=== PATIENT | male | born 1965 | race Caucasian/White ===

== ENCOUNTER 2019-04-11 18:29 | Outpatient (REF) | payer MEDICAID, SELFPAY ==
[2019-04-11 21:38] LABS: Calculated LDL 128 mg/dL; Cholesterol 198 mg/dL (50-200); HDL Cholesterol 31 mg/dL (40-60); Triglyceride 199 mg/dL (30-150)
[2019-04-12 08:13] LABS: ALT 28 U/L (12-78); AST 12 U/L (15-37); Alkaline Phosphatase 110 U/L (46-116); Anion Gap 11.3 mmol/L (3-11); BUN 17 mg/dL (7-18); Bilirubin, Total 0.4 mg/dL (0.2-1.0); CO2 24.7 mmol/L (21.0-32.0); Chloride 104 mmol/L (98-107); Glucose 89 mg/dL (70-100); Potassium 4.4 mmol/L (3.5-5.1); Sodium 140 mmol/L (136-145); Total Protein 7.6 g/dL (6.4-8.2)
== END 2019-04-11 18:49 ==
LOC: NCHCN 18:29
PROVIDERS: PCP Nurse Practitioner Family; Visit Provider Nurse Practitioner Family
DX: F41.8 Other specified anxiety disorders (principal); G43.109 Migraine with aura, not intractable, without status migrainosus; R05 Cough; R06.83 Snoring; R10.32 Left lower quadrant pain; F17.210 Nicotine dependence, cigarettes, uncomplicated; Z13.220 Encounter for screening for lipoid disorders; Z00.00 Encounter for general adult medical examination without abnormal findings; R00.2 Palpitations
CPT/HCPCS: 80053; 80061; 83721

== ENCOUNTER 2019-04-22 02:45 | Outpatient (CLI) | payer MEDICAID, SELFPAY ==
--- NOTE | 2019-04-22 | PFT_ITS ---
PULMONARY FUNCTION TEST REPORT Patient - Sergio Del Rio DATE OF SERVICE April 22, 2019 REQUESTING PROVIDER Aimee Cortes NP INTERPRETATION OF STUDY Spirometry shows no evidence of obstructive airways disease with no significant bronchodilator response. LUNG VOLUMES - Lung volumes show no evidence of restriction. DIFFUSION CAPACITY- Moderately reduced, which is mildly reduced when corrected to alveolar volume. AIRWAY RESISTANCE - Normal. IMPRESSION Mild obstructive airways disease with no significant bronchodilator response. This is associated with moderate diffusion defect. Clinical correlation recommended. Isaura Bee M.D. Leno T- 04/28/2019
[2019-04-22] MEDS: Inhaler, Assist Device 1 EACH MC (14:15)
[2019-04-22] MEDS: Albuterol HFA 18 GM 200 PUFF INH IH (14:16)
== END 2019-04-22 03:05 ==
PROVIDERS: PCP Nurse Practitioner Family; Visit Provider Nurse Practitioner Family
DX: R05 Cough (principal); R06.09 Other forms of dyspnea; F17.200 Nicotine dependence, unspecified, uncomplicated
CPT/HCPCS: 94060; 94150; 94726; 94729

== ENCOUNTER 2019-06-14 16:42 | Outpatient (REF) | payer BC, MEDICAID, SELFPAY ==
[2019-06-14 21:29] LABS: ALT 41 U/L (16-63); AST 16 U/L (15-37); Albumin 4.2 g/dL (3.4-5.0); Alkaline Phosphatase 111 U/L (46-116); Anion Gap 9.8 mmol/L (3-11); BUN 8 mg/dL (7-18); Bilirubin, Total 0.4 mg/dL (0.2-1.0); CO2 28.2 mmol/L (21.0-32.0); CREATININE 1.13 mg/dL (0.70-1.30); Calcium 9.5 mg/dL (8.5-10.1); Calculated LDL 88 mg/dL; Chloride 101 mmol/L (98-107); Cholesterol 159 mg/dL (50-200); Glucose 93 mg/dL (70-100); HDL Cholesterol 35 mg/dL (40-60); Potassium 4.3 mmol/L (3.5-5.1); Sodium 139 mmol/L (136-145); Total Protein 7.7 g/dL (6.4-8.2); Triglyceride 184 mg/dL (30-150)
== END 2019-06-14 17:02 ==
LOC: NCHCN 16:42
PROVIDERS: PCP Nurse Practitioner Family; Visit Provider Nurse Practitioner Family
DX: F41.8 Other specified anxiety disorders (principal); I25.10 Atherosclerotic heart disease of native coronary artery without angina pectoris; R00.2 Palpitations; F17.210 Nicotine dependence, cigarettes, uncomplicated; J44.9 Chronic obstructive pulmonary disease, unspecified; J01.90 Acute sinusitis, unspecified; R06.83 Snoring
CPT/HCPCS: 80053; 80061

== ENCOUNTER 2020-06-04 19:05 | Outpatient (REF) | payer OTHER, SELFPAY ==
[2020-06-07 20:05] LABS: Patient Race White; SARS-CoV-2 RNA Undetected (Undetected); SARS-CoV-2 Specimen Source Nasal
== END 2020-06-04 19:25 ==
LOC: NCHCN 19:05
PROVIDERS: PCP Nurse Practitioner Family; Visit Provider Family Medicine
DX: J02.9 Acute pharyngitis, unspecified (principal); R05 Cough; Z11.59 Encounter for screening for other viral diseases
CPT/HCPCS: U0003

== ENCOUNTER 2020-09-03 18:09 | Outpatient (REF) | payer OTHER, SELFPAY ==
[2020-09-03 20:56] LABS: HCT 45.2 % (40.0-50.0); HGB 15.4 g/dL (13.5-17.5); MCH 31.2 pg (27.0-33.0); MCHC 34.1 % (32.0-36.0); MCV 91.7 fL (80-95); MPV 9.6 fL (8.0-11.0); Platelet Count 310 10^3/uL (130-400); RBC 4.93 10^6/uL (4.36-5.78); RDW 13.1 % (11.8-14.1); WBC 10.94 10^3/uL (4.4-10.8)
[2020-09-03 21:05] LABS: ALT 43 U/L (16-63); AST 18 U/L (15-37); Albumin 4.3 g/dL (3.4-5.0); Alkaline Phosphatase 97 U/L (46-116); Anion Gap 7.4 mmol/L (3-11); BUN 11 mg/dL (7-18); Bilirubin, Total 0.4 mg/dL (0.2-1.0); CO2 26.6 mmol/L (21.0-32.0); CREATININE 1.09 mg/dL (0.70-1.30); Calculated LDL 147 mg/dL (<100); Chloride 102 mmol/L (98-107); Cholesterol 218 mg/dL (<200); Glucose 87 mg/dL (74-106); HDL Cholesterol 36 mg/dL (40-60); Potassium 4.2 mmol/L (3.5-5.1); Sodium 136 mmol/L (136-145); Total Protein 7.6 g/dL (6.4-8.2); Triglyceride 177 mg/dL (<150)
[2020-09-03 21:40] LABS: Vitamin D 25 Total 39.6 ng/ml (30-100)
== END 2020-09-03 18:29 ==
LOC: NCHCN 18:09
PROVIDERS: PCP Nurse Practitioner Family; Visit Provider Family Medicine
DX: I25.10 Atherosclerotic heart disease of native coronary artery without angina pectoris (principal)
CPT/HCPCS: 80053; 80061; 82306; 85027

== ENCOUNTER 2020-10-17 09:57 | Emergency (ER) | payer OTHER, SELFPAY ==
[2020-10-17] VITALS (40 sets, daily range): BP systolic 115–140; BP diastolic 72–97; PULSE 52–75; RESP 12–25; TEMP 37.1; O2SAT 94–100
--- NOTE | 2020-10-17 10:00 | RT.EKG_ITS ---
APPROVED REPORT Exam: Resting ECG Patient Location: E HR:67 bpm ECG Measurements Heart Rate 67 AXIS DE 184 P 80 QRSd 135 QRS -13 QT 437 T 52 QTc 461 Conclusion Sinus rhythm...normal P axis, V-rate 60- 99 Right bundle branch block...QRSd>120, terminal axis(90,270) ST elevation, consider inferior injury...ST >0.08mV, II III aVF. No STEMI. RBBB. No old EKG to compare. I have reviewed and interpreted ECG and agree with software generated interpretation.
--- NOTE | 2020-10-17 10:30 | DI.RAD_ITS ---
EXAM: XR PORTABLE CHEST AP CLINICAL HISTORY: chest pain. TECHNIQUE: 2D digital imaging was performed. COMPARISON: No exams were available for comparison FINDINGS: Heart size is normal. The mediastinum is not widened. There is platelike atelectasis in both lung bases. No pleural effusions. No pulmonary edema. No pn eumothorax. Chest leads in place IMPRESSION: There is subsegmental platelike atelectasis in both lung bases. No pleural effusions. DATA REPOSITORY: RADIATION DOSE DELIVERED:
[2020-10-17 10:31] LABS: Abs Immature Grans 0.03 10^3/uL (0.0-0.06); Absolute Basophil Count 0.09 10^3/uL (0.0-0.2); Absolute Eosinophil Count 0.18 10^3/uL (0.0-0.7); Absolute Lymphocyte Count 3.13 10^3/uL (1.2-3.4); Absolute Monocyte Count 0.78 10^3/uL (0.1-0.8); Absolute Neutrophil Count 4.76 10^3/uL (1.2-6.7); HCT 45.2 % (40.0-50.0); HGB 15.3 g/dL (13.5-17.5); Immature Grans % 0.3; Lymphocytes % 34.9; MCH 31.2 pg (27.0-33.0); MCHC 33.8 % (32.0-36.0); MCV 92.1 fL (80-95); MPV 9.4 fL (8.0-11.0); Monocytes % 8.7; Neutrophils % 53.1; Nucleated RBC 0 %; Platelet Count 292 10^3/uL (130-400); RBC 4.91 10^6/uL (4.36-5.78); RDW 13.2 % (11.8-14.1); RDW-SD 44.8 fL; WBC 8.97 10^3/uL (4.4-10.8)
[2020-10-17 10:41] LABS: ALT 34 U/L (16-63); AST 16 U/L (15-37); Albumin 3.8 g/dL (3.4-5.0); Alkaline Phosphatase 94 U/L (46-116); Anion Gap 10.2 mmol/L (3-11); BUN 18 mg/dL (7-18); Bilirubin, Total 0.5 mg/dL (0.2-1.0); CO2 23.8 mmol/L (21.0-32.0); CREATININE 1.2 mg/dL (0.70-1.30); Calcium 8.7 mg/dL (8.5-10.1); Chloride 102 mmol/L (98-107); Glucose 156 mg/dL (74-106); Magnesium 1.7 mg/dL (1.8-2.4); Potassium 3.9 mmol/L (3.5-5.1); Sodium 136 mmol/L (136-145); Total Protein 7.7 g/dL (6.4-8.2); Troponin I < 0.05 ng/mL (<0.06)
--- NOTE | 2020-10-17 10:42 | W.ED.GENAD ---
Discharge Plan Disposition Patient Disposition: HOME Condition: Stable Discharge Details Clinical Impression: Chest pain, Lung nodule Primary Care Provider: Aimee Cortes ED Provider: Laury Adhikari Home Meds and New Rx's Prescriptions: No Action bupropion HCl (smoking deter) [Zyban] 150 mg tablet extended release 12 hr 150 mg PO DAILY RF: 0 multivitamin Capsule 1 cap PO DAILY RF: 0 albuterol sulfate 90 mcg/actuation HFA aerosol inhaler 2 puff INHALATION PRNRF: 0 fluticasone propionate 50 mcg/actuation spray,suspension INTRANASAL RF: 0 Spiriva with HandiHaler 18 mcg capsule, w/inhalation device INHALATION RF: 0 acetaminophen [Tylenol] 325 mg Tablet 650 mg PO .QAM PRNRF: 0 echinacea 500 mg Capsule 500 mg PO DAILY RF: 0 Discharge Instructions Instructions: Chest Pain (ED) Additional Instructions: please follow-up with [facility] [place] at the discretion of your doctor, you have stenosis to your right carotid artery you have a nodule in your lung that will also need follow-up, you may need referral to lung doctor (sales and service change leader) should your copd worsen take an 81 mg dose of aspirin daily follow-up for your stress test call your doctor tomorrow for follow-up return earlier with new or worsening complaints, our recommendation is that your are admitted for a chest pain evaluation at this time (it is very important you follow-up wtih your doctor) Stand Alone Forms: Work Release Medical Decision Making EKG with right bundle, no evidence of obvious ST elevation RI or ischemia, this was repeated x2 Will order CTA head and neck in addition to chest given presenting symptoms Initial troponin negative Diagnostic blood work reassuring Vital stable Patient has declined additional intervention at this time Patient has not had chest pain since 7:00 last night, 1 troponin reasonable, 1 EKG reasonable I did recommend admission with heart score of 4, patient has declined at this time, he is alert, oriented, of decisional capacity, he is aware that he has a significant risk for coronary event given his family history and comorbidities however he declines admission at this time for rule out I did offer a second troponin, at this time patient feels that he like to be discharged home I made him aware of the 40% stenosis in his right internal carotid artery which I do not suspect is contributing to any of his symptoms at this time, above the area of stenosis artery is patent according to CT imaging read CT brain does not show acute pathology Patient made aware of the nodule and need for close outpatient follow-up Patient will take an 81 mg of aspirin daily and I did order an outpatient stress test for this patient Patient discharged home with stable vitals and instructed to follow-up with his primary care physician tomorrow Has been very low threshold to return should he have new or worsening complaints and I did discuss my concern regarding him being discharged at this time He is leaving against our recommendation and we made joint decision making together This exam transpired during the COVID-19 pandemic, given COVID-19 pandemic, medical decision making and clinical care may be altered Differential Diagnosis Differential Diagnosis: Non-ST elevation RI, pulmonary embolism, dissection, anxiety Medical Records Medical records reviewed: Yes I reviewed the patient's medical records. Lab Data Lab results reviewed: Yes I reviewed the patient's lab results. HPI This 55-year-old male with past medical history of hyperlipidemia, depression, presents with report of headache and dizziness for the past week. He is typically worse in the morning. He also has intermittent right-sided chest pain and paresthesias. He denies any known sick contacts. He denies any history of similar symptoms in the past. He denies any current dizziness and has a mild right-sided headache. He states that he feels like he is off balance predominantly in the morning. He denies any traumatic injuries to neck or head in the past month. He states he is a mild increase exertional shortness of breath. He denies any left-sided chest pain but does have intermittent right-sided chest pain. His last episode of chest pain was last evening at rest. He states it lasted approximately half an hour and resolved. He denies any nausea or vomiting. He denies any. He Denies Any Calf Pain or Swelling, Recent Flights, Surgeries, Long Drives. Stress test which was performed approximately 18 years ago. He states that the treadmill stress test and because of his COPD was not very successful in performing it. He has not had any additional interventions since that time. He does have significant cardiac family history with a sister who at 43 of RI, brother who at 55 of RI, and a father who at 70 of RI. He does smoke tobacco although he is cutting down. He also has a history of hyperlipidemia without history of hypertension. General Date/Time Provider Initiated Documentation: 10/17/20 09:58. Related Data Home Medications Medication Instructions Recorded Confirmed bupropion HCl (smoking deter) 150 150 mg PO DAILY 04/14/19 10/17/20 mg tablet,12 hr sustained-release(smoking deterrent) multivitamin 1 cap PO DAILY 04/14/19 10/17/20 acetaminophen [Tylenol] 650 mg PO .QAM PRN 10/17/20 10/17/20 albuterol sulfate 2 puff INHALATION PRN 10/17/20 echinacea 500 mg PO DAILY 10/17/20 10/17/20 fluticasone propionate INTRANASAL 10/17/20 tiotropium bromide [Spiriva with INHALATION 10/17/20 HandiHaler] Allergies Allergy/AdvReac Type Severity Reaction Status Date / Time codeine Allergy Anaphylaxsi Verified 10/17/20 10:10 s General Stated Complaint: Chest Pain STAS: 2 Review of Systems Narrative: Review of systems negative x7 aside from where indicated in the HPI, specifically no chest pain or swelling, speech change, current chest pain or shortness of breath, nausea, vomiting PFSH Medical History (Updated 10/17/20 @ 13:43 by RADHIKA Haywood) Anxiety with depression 04/11/19 trial with bupropion for smoking cessation Cigarette smoker 04/11/19 trial with bupropion Cough PFTs ordered 04/11/19 Left inguinal pain Migraine headache Palpitations Snoring 04/11/19 patient declined sleep study Social History Smoking/Tobacco Use Status: Current every day Tobacco Type: cigarettes Smoking risk assessment performed?: Yes Alcohol Intake: never Substance use type: does not use Do you feel safe at home: Yes Do you feel safe in your relationship?: Yes Exam Const General: cooperative and comfortable HENMT Mouth: oral mucosae normal Throat: uvula midline Eyes Pupils: PERRL EOM: EOM intact bilaterally Other: No nystagmus Neck Other: No midline tenderness, no carotid bruits Chest Other: Nontender, no rashes or lesions Resp Effort & Inspection: normal respiratory effort Auscultation: clear to auscultation bilaterally Cardio Rate: regular rate Rhythm: regular rhythm GI Other: No abdominal tenderness or pulsatile mass Skin General skin exam: no rashes or lesions noted Neuro General: patient alert and patient oriented x3 Speech: speech normal Gait: normal gait Motor: strength 5/5 throughout and no pronator drift Sensory Exam: no sensory deficits noted Coordination: [id number] test normal Extrem Other: No calf tenderness or swelling Course Vital Signs Vital signs: Vital Signs Temperature 37.1 C 10/17/20 10:04 Pulse 70 10/17/20 10:04 Respiratory Rate 24 10/17/20 10:04 Blood Pressure 135/84 10/17/20 10:04 Temperature 37.1 C 10/17/20 10:04 Temperature Source Skin 10/17/20 10:04 Pulse 70 10/17/20 10:16 Pulse 68 10/17/20 10:20 Respiratory Rate 13 10/17/20 10:20 Respiratory Effort 10/17/20 10:04 Blood Pressure 140/81 10/17/20 10:16 Blood Pressure Mean 96 10/17/20 10:16 Pulse Oximetry 98 10/17/20 10:20 Pain Level 4 10/17/20 10:04 Comment 10/17/20 10:04 Lab/Test Results Lab/Test Results: Laboratory Tests Range/Units 10/17/20 10/17/20 10:10 10:10 WBC (4.4-10.8) 10^3/uL 8.97 RBC (4.36-5.78) 10^6/uL 4.91 Hgb (13.5-17.5) g/dL 15.3 Hct (40.0-50.0) % 45.2 MCV (80-95) fL 92.1 MCH (27.0-33.0) pg 31.2 MCHC (32.0-36.0) % 33.8 RDW (11.8-14.1) % 13.2 Plt Count (130-400) 10^3/uL 292 MPV (8.0-11.0) fL 9.4 Immature Gran % 0.3 Neutrophils % 53.1 Lymphocytes % 34.9 Monocytes % 8.7 Eosinophils % 2.0 Basophils % 1.0 Nucleated RBC % % 0 Absolute Neutrophils (1.2-6.7) 10^3/uL 4.76 Absolute Lymphocytes (1.2-3.4) 10^3/uL 3.13 Absolute Monocytes (0.1-0.8) 10^3/uL 0.78 Absolute Eosinophils (0.0-0.7) 10^3/uL 0.18 Absolute Basophils (0.0-0.2) 10^3/uL 0.09 Sodium (136-145) mmol/L 136 Potassium (3.5-5.1) mmol/L 3.9 Chloride (98-107) mmol/L 102 Carbon Dioxide (21.0-32.0) mmol/L 23.8 Anion Gap (3-11) mmol/L 10.2 BUN (7-18) mg/dL 18 Creatinine (0.70-1.30) mg/dL 1.2 Estimated GFR/1.73 m2 (mL/min/1.73m2) >= 60.00 Glucose (74-106) mg/dL 156 H Calcium (8.5-10.1) mg/dL 8.7 Magnesium (1.8-2.4) mg/dL 1.7 L Total Bilirubin (0.2-1.0) mg/dL 0.5 AST (15-37) U/L 16 ALT (16-63) U/L 34 Alkaline Phosphatase (46-116) U/L 94 Troponin I (<0.06) ng/mL < 0.05 Total Protein (6.4-8.2) g/dL 7.7 Albumin (3.4-5.0) g/dL 3.8
[2020-10-17 10:48] LABS: PTT Activated 23.2 sec (21.0-27.5); Prothrombin Time 9.9 sec (9.3-11.0)
[2020-10-17 11:18] LABS: NT-proBNP 40 pg/mL (<300)
[2020-10-17 11:20] LABS: TSH 2.27 uIU/mL (0.36-3.74)
[2020-10-17 11:22] LABS: D-Dimer 513 ng/mlFEU (<500)
--- NOTE | 2020-10-17 11:30 | RT.EKG_ITS ---
APPROVED REPORT Exam: Resting ECG Patient Location: E HR:59 bpm ECG Measurements Heart Rate 59 AXIS MO 183 P 79 QRSd 134 QRS -25 QT 457 T 44 QTc 453 Conclusion Sinus bradycardia...rate< 60 Right bundle branch block...QRSd>120, terminal axis(90,270) ST elevation, consider inferior injury...ST >0.08mV, II III aVF. No STEMI. No change from previous. I have reviewed and interpreted ECG and agree with software generated interpretation.
--- NOTE | 2020-10-17 11:30 | DI.CT_ITS ---
EXAM: CT CHEST PE CTA CLINICAL HISTORY: chest pain radiation into head, sob. TECHNIQUE: Imaging Protocol: CT angiography of the chest was performed using pulmonary embolus amol col. Multi planar reconstructions were performed. CONTRAST MATERIAL: Intravenous: Omnipaque 350 Contrast volume: 100 cc COMPARISON: CT CT BRAIN NECK CTA from 10/17/2020 FINDINGS: CHEST: PULMONARY ARTERIES: There are no intraluminal filling defects to suggest acute pulmonary emboli. LUNGS: There are advanced COPD emphysematous changes in both lung eduardo.. Symmetrical increased mar kings are noted in the dependent aspects of both lower lobes, not associated with pleural effusions. There are no significant focal findings in the trachea and mainstem bronchi. MEDIASTINUM: There is no hilar nor mediastinal adenopathy. Visualized thyroid unremarkable. CARDIAC: Heart size is normal. There is no pericardial effusion.Caliber of the thoracic aorta is wit hin normal limits. There is no evidence of shift of the interventricular septum. PARTIALLY VISUALIZED UPPERMOST ABDOMEN: No obvious findings OSSEOUS: No significant osseous lesions.. IMPRESSION: 1. No evidence of acute pulmonary emboli. No evidence of pulmonary infarction.No pleural effusions. No intrathoracic adenopathy 2. Advanced COPD emphysematous changes. Symmetrical increased markings in the posterior aspect both lower lobes. No associated pleural effusions. 3. No evidence of aortic dissection. Thoracic aortic diameter is normal. No pericardial effusion. No cardiomegaly. RADIATION DOSE DELIVERED: LINK-TO-SR Total DLP DATA REPOSITORY: All CT scans at this facility are submitted to the National Radiology Data Registry (NRDR) Dose Index Registry (DIR) with the [employer] (ACR). RADIATION OPTIMIZATION: All CT scans at this facility use at least one of these dose optimization te chniques: automated exposure control; mA and/or kV adjustment per patient size (includes targeted exa ms where dose is matched to clinical indication); or iterative reconstruction.
--- NOTE | 2020-10-17 11:30 | DI.CT_ITS ---
EXAM: CT BRAIN NECK CTA CLINICAL HISTORY: dizziness, REILLY, CHest pain. TECHNIQUE: Imaging Protocol: Axial CT angiography was performed with multi-slice acquisition and mu lti-planar and/or 3D reconstructions. CONTRAST MATERIAL: Intravenous: Omnipaque 350 Contrast volume:structured data in ml COMPARISON: No exams were available for comparison FINDINGS: CTA Neck W: Incidentally noted is a subpleural nodule in the left upper lobe measuring 5 by 6 millimeters. This will require appropriate follow-up. Aortic arch anatomy: Conventional. There is no significant stenosis at the origin of the great vesse ls off the aortic arch. Anterior circulation: Both common carotid arteries ascend with normal luminal diameters. At the level of the left carotid bifurcation there is no significant disease. The left internal carotid arteries nicely patent in the neck and skull base-carotid canal. On the right side there is mild-moderate calcified and noncalcified plaque at the bifurcation and pro ximal internal carotid artery. There is approximately 40 percent luminal stenosis in the proximal ri ght internal carotid artery. Above this level the internal carotid artery exhibits normal caliber in the upper neck and skull base-carotid canal. Posterior circulation: Both vertebral arteries originated conventional fashion off of the subclavian arteries no significant stenosis evident at their origins. Also no significant stenosis in the subclavian arteries proximal to the vertebral artery takeoff points. Both vertebral arteries exhibit normal equal diameters in the foramen transversarium and both verteb ral arteries contribute to the formation of the basilar artery at the skull base. CTA Brain W: Anterior circulation: Both internal carotid arteries a patent in the skull base and carotid canals. Supraclinoid aspects o f the internal carotid arteries are patent and nonaneurysmal. Both middle cerebral arteries are davies nt out to the sylvian fissure branches. Both A1 segments are patent as are the anterior cerebral art eries and there is no evidence of aneurysm at the level of the anterior communicating artery. Posterior circulation: Both vertebral arteries contribute to the formation of the basilar artery at the skull base. The bas ilar artery is sends in the midline with normal luminal diameter. Distally it gives off superior cer ebellar arteries and above this level terminates as patent posterior cerebral arteries bilaterally. There is no evidence of aneurysm at the tip of the basilar artery nor elsewhere in the [id number] is CT BRAIN: There are no ring enhancing lesions in the brain. No abnormal meningeal enhancement, focal or diffus e. No evidence of intracranial hemorrhage. Ventricle size is normal. IMPRESSION: 1. Approximately 40 percent stenosis at the origin of the right internal carotid artery. No signific ant stenosis at the similar location on the opposite-left side. 2. No evidence of significant abnormality in the vertebral arteries in the neck. 3. Patent intracerebral arteries. No aneurysms evident in the brain. RADIATION DOSE DELIVERED: 2,042.66mGy.cm Total DLP DATA REPOSITORY: All CT scans at this facility are submitted to the National Radiology Data Registry (NRDR) Dose Index Registry (DIR) with the [employer] (ACR). RADIATION OPTIMIZATION: All CT scans at this facility use at least one of these dose optimization te chniques: automated exposure control; mA and/or kV adjustment per patient size (includes targeted exa ms where dose is matched to clinical indication); or iterative reconstruction.
[2020-10-17] MEDS: Omnipaque 350 MG/ML 100 ML BTL 150 ML IJ (12:12)
[2020-10-18 13:17] LABS: COVID-19 RT-PCR UVMMC Result Negative (Negative)
== END 2020-10-17 14:15 | disposition home or self-care (01) ==
PROVIDERS: Physician Assistant; Emergency Provider Physician Assistant; PCP Nurse Practitioner Family
DX: R07.89 Other chest pain (principal); R91.1 Solitary pulmonary nodule; Z82.49 Family history of ischemic heart disease and other diseases of the circulatory system; J44.9 Chronic obstructive pulmonary disease, unspecified; F17.210 Nicotine dependence, cigarettes, uncomplicated; Z20.822 Contact with and (suspected) exposure to COVID-19
CPT/HCPCS: 70496; 70498; 71275; 80053; 93005; 99285; U0003; 71045; 83735; 83880; 84443; 84484; 85025; 85379; 85610; 85730; 93010; 99284; J3490

== ENCOUNTER 2020-10-29 01:17 | Outpatient (CLI) | payer OTHER, SELFPAY ==
--- NOTE | 2020-10-29 08:45 | DI.NM_ITS ---
APPROVED REPORT Exam: Pharmacologic Patient Location: Out-Patient Room/Bed: Stress Nurse: Chrissy Perez RN Ordering Provider:DANIEL BRADLEY, Contact Number: [phone] BMI: 22.59 Baseline Rhythm: Sinus Bradycardia Comment: RBBB, minimal ST elevation in leads II, III, AVF, V4, V5, V6 Indications: Chest pain Medical History Medical History: Anxiety, depression, tobacco use, palpitations, HLD, RBBB Cardiac Medications: albuterol sulfate, rosuvastatin, magnesium, spiriva Allergies: codeine Cardiac Risk Factors: Family hx, HLD, COPD, smoker (current) Previous Cardiac Procedures: None Pretest Chest Pain Characteristics: None Exercise History: Sedentary Physical Disabilities: None Lung Sounds: Clear to auscultation Heart Sounds: Regular Stress Test Details Test: Exercise stress converted to pharmacologic stress due to failure to obtain a diagnostic stress test. Nuclear Acquisition: Rest Tc-99m/Stress Tc-99m 1 day Rest Isotope: Tc-99m Sestamibi. Dose: 11.0 Date: 10/29/2020 Injection Time: 0900 Stress Isotope: Tc-99m Sestamibi. Dose: 37.2 Date: 10/29/2020 Injection Time: 1025 HR Resting HR Supine: 58 bpm Max Heart Rate (APMHR): 165.834023 bpm Resting HR Standin bpm Target HR (85% APMHR): 140.352471 bpm Max HR Achieved: 98 bpm % of APMHR: 59.39 Recovery HR: 76 bpm HR response to stress: Blunted HR response to stress BP Resting BP Supine: 128/78 mmHg Resting BP Standin/72 mmHg Max BP: 156/72 mmHg Recovery BP: 140/78 mmHg BP response to stress: Normal blood pressure response to stress. ECG Resting ECG: Sinus Bradycardia, RBBB Ectopy: None Comment: minimal ST elevation in leads V4, V5, V6 Stress ECG: Sinus Rhythm, RBBB ST Change: No significant ST segment changes noted Arrhythmia: None Recovery ECG: Sinus Rhythm, RBBB Recovery ST Change: No significant ST segment changes noted Recovery Arrhythmia: None Clinical Reason for Termination: Dyspnea, R Chest pain/Anginal equivalent Stress Symptoms: Dyspnea, R Chest pain Exercise duration: 10 min43 sec Highest Stage Reached: Stage 3: 3.4 mph at 14% grade. Exercise capacity: 10.16 METs Rate Pressure Product: [id number] Stress ECG Conclusion 1. The patient exercised for 10 minutes (10 METS). 2. Patient had right-sided chest pain that did not limit exercise. 3. The ECG portion of this exam is nondiagnostic due to Baseline EKG abnormalities Stress Test Summary STAGE Time (mins) Speed (mph) Grade (%) HR BP SYMPTOMS METS Supine 58 128/78 Standing 71 140/72 1 3 1.7 10 75 142/76 4.6 2 6 2.5 12 79 156/72 7 3 9 3.4 14 90 R side CP 6/10, dyspnea 10.2 1 min post Lexiscan injection 98 144/80 3 min post Lexiscan injection 82 138/82 R side CP 4/10, dyspnea 6 min post Lexiscan injection 76 140/78 R side CP 2/10, dyspnea resolved MPI Conclusion The ejection fraction was 59% with stress. There were no wall motion abnormalities. There was no evidence of ischemia on the imaging portion of the exam. This represents a normal SPECT stress test. Radiologist Interpretation Radiologist agrees with Stitching Machine Operator's Interpretation. Radiologist Interpretation by: Nandini Granados MD Interpretation Date/Time: 10/29/2020 15:36:30
[2020-10-29] MEDS: Regadenoson 0.4 MG/5 ML SYR IVP (11:12)
== END 2020-10-29 01:37 ==
PROVIDERS: PCP Family Medicine; Visit Provider Physician Assistant
DX: R07.9 Chest pain, unspecified (principal); Z82.49 Family history of ischemic heart disease and other diseases of the circulatory system; E78.5 Hyperlipidemia, unspecified; J44.9 Chronic obstructive pulmonary disease, unspecified; F17.210 Nicotine dependence, cigarettes, uncomplicated
CPT/HCPCS: 78452; 93017; J2785

== ENCOUNTER 2020-12-14 07:24 | Outpatient (CLI) | payer OTHER, SELFPAY ==
[2020-12-14] MEDS: Inhaler, Assist Device 1 EACH MC (16:19)
[2020-12-14] MEDS: Albuterol HFA 18 GM 200 PUFF INH IH (16:19)
--- NOTE | 2020-12-17 15:10 | W.PFT ---
Date of service: 12/14/20 Time of Service: 02:52 Pulmonary Function Test Result Interpretation Spirometry: Mild obstructive airways disease with no significant bronchodilator response Lung Volumes: No evidence of restriction Diffusion Capacity: moderately decreased even when corrected to alveolar volume Airway Pressure: normal Impression Mild obstructive airways disease with no significant bronchodilator response, this is associated with moderate diffusion defect. When the study was compared to previous one from 04/22/2019, there is a 360 cc decline in FVC, FEV1 has declined by 160 cc. Total lung capacity has declined by 480 cc, diffusion capacity has only so had a significant decline Clinical Correlation therefore is recommended.
== END 2020-12-14 07:25 | disposition home or self-care (01) ==
LOC: RT 07:25
PROVIDERS: PCP Family Medicine; Visit Provider Family Medicine
DX: J44.9 Chronic obstructive pulmonary disease, unspecified (principal); R06.09 Other forms of dyspnea; R07.89 Other chest pain; F17.210 Nicotine dependence, cigarettes, uncomplicated
CPT/HCPCS: 94060; 94726; 94729

== ENCOUNTER 2021-04-15 11:26 | Outpatient (CLI) | payer SELFPAY ==
--- NOTE | 2021-04-15 | DI.RAD_ITS ---
Exam(s) XR ANKLE RT COMPLETE EXAM: XR ANKLE RT COMPLETE CLINICAL HISTORY: RT ANKLE PAIN M25.571, SPRAIN VS FX. TECHNIQUE: 2D digital imaging was performed. COMPARISON: No exams were available for comparison FINDINGS: Is soft tissue swelling over the lateral malleolus but no fracture or widening of the mortise. No os teochondral defects of the talar dome. No osseous tarsal coalition. Bone density normal. IMPRESSION: Soft tissue swelling but no fracture evident. DATA REPOSITORY: RADIATION DOSE DELIVERED:
--- NOTE | 2021-04-15 16:38 | DI.VRAD_ITS ---
PROCEDURE INFORMATION: Exam: XR Right Ankle Exam date and time: 04/15/2021 4:05 PM Age: 55 years old Clinical indication: Right; Patient HX: RT ankle pain; Additional info: Lin vs fracture TECHNIQUE: Imaging protocol: XR Right ankle. Views: 3 or more views. COMPARISON: No relevant prior studies available. FINDINGS: Bones/joints: No acute fracture or dislocation. The alignment is anatomic. There is suggestion of a small joint effusion. Soft tissues: Soft tissue swelling is noted around the ankle joint. IMPRESSION: 1. No acute fracture or dislocation. 2. Soft tissue swelling and possible small ankle joint effusion. Dictated and Authenticated by: Davina Brunson MD. Ordering:BOLA Flores MD
== END 2021-04-15 11:46 ==
PROVIDERS: PCP Family Medicine; Visit Provider Physician Assistant Medical
DX: M25.571 Pain in right ankle and joints of right foot (principal); M25.471 Effusion, right ankle
CPT/HCPCS: 73610

== ENCOUNTER 2021-07-04 12:30 | Outpatient (REF) | payer SELFPAY ==
[2021-07-05 16:05] LABS: COVID-19 RT-PCR UVMMC Result Negative (Negative)
== END 2021-07-04 12:31 | disposition home or self-care (01) ==
LOC: NCHCN 12:30
PROVIDERS: PCP Family Medicine; Visit Provider Family Medicine
DX: Z20.822 Contact with and (suspected) exposure to COVID-19 (principal)
CPT/HCPCS: U0003

== ENCOUNTER 2023-12-21 05:53 | Outpatient (CLI) | payer BC, SELFPAY ==
[2023-12-21] MEDS: Levalbuterol HFA 15 GM INH 4 PUFF IH (17:19)
[2023-12-21] MEDS: Inhaler, Assist Device 1 EACH MC (17:20)
--- NOTE | 2023-12-22 10:57 | W.PFT ---
Date of service: 12/21/23 Time of Service: 15:23 Pulmonary Function Test Result Indications: COPD Interpretation Spirometry: There is no airflow limitation. No bronchodilator response. Lung Volumes: There is hyperinflation and air trapping Diffusion Capacity: Reduced diffusion Airway Pressure: Normal airways resistance Impression No airflow obstruction. There is air trapping and a decreased diffusion consistent with emphysema. Clinical Correlation therefore is recommended.
== END 2023-12-21 05:54 | disposition home or self-care (01) ==
LOC: RT 05:53
PROVIDERS: PCP Family Medicine; Visit Provider Student in an Organized Health Care Education/Training Program
DX: J44.9 Chronic obstructive pulmonary disease, unspecified (principal)
CPT/HCPCS: 94060; 94726; 94729

== ENCOUNTER 2024-06-13 21:47 | Outpatient (REF) | payer BC, SELFPAY ==
--- OUTSIDE RECORDS SUMMARY | 2024-06-13 21:48 | XMS_ITS | Encounter Summary ---
Author Organization [facility] Address [address] [place] [address] Care Team Providers Care Brace End Mainspring Former Name Role Phone Unknown, Provider Primary Care Provider Encounter Details Date Type Department Care Team (Late st Contact Info) Description 10/17/2020 Lab Requisition [facility] Pathology & [place] [address] Outr Resulting Lab, Provider Social History Tobacco Use Types Packs/Day Years Used Date Smoking Tobacco: Never Assessed Sex and Gender Information Value Date Recorded Sex Assigned at Not on file Gender Identity Not on file Sexual Orientation Not on file documented as of this encounter Plan of Treatment Not on file documented as of this encounter Procedures Procedure Name Priority Date/Time Associated Diagnosis Comments ZZCOVID-19 TEST [facility] PCR Today 10/17/2020 13:38 EST COVID-19 TESTING Routine 10/17/2020 13:3 8 EST documented in this encounter Results * COVID-19 TEST [facility] PCR (10/17/2020 13:38 EST) Swab ENTIRE NASOPHARYNX / Unknown 10/17/2020 13:38 EST 10/17/2020 20:41 EST Provider Outr Resulting Lab MICROBIOLOGY - GENERAL ORDERABLES [facility] [address] [place] [address] * COVID-19 TESTING (10/17/2020 13:38 EST) COVID-19 rt-PCR Result Negative Negative 10/18/2020 13:11 EST [facility] Comment: This test has not been FDA cleared or approved. This test has been authorized by FDA under an EUA for use by authorized laboratories. This test has been authorized only for detection of nucleic acid from 2019-nCoV, not for any other viruses or pathogens. This test is only authorized for the duration of the declaration that circumstances exist justifying the authorization of emergency use of in vitro diagnostic tests for detection and/or diagnosis of 2019-nCoV under section 564(b)(1) of Act, 21 U.S.C ?? 360bbb-3(b) (1), unless the authorization is terminated or revoked sooner. Negative results do not preclude 2019-nCoV infection and should not be used as the sole basis for treatment or other patient management decisions. Negative results must be combined with clinical observations, patient history, and epidemiological information. This test was developed and its performance characteristics determined by [facility]. It has not been cleared or approved by the US Food and Drug Administration. FDA does not require this test to go through premarket FDA review. This test is used for clinical purposes. It should not be regarded as investigational or for research. This laboratory is certified under the Clinical Laboratory Improvement Amendments (CLIA) as qualified to perform high complexity clinical laboratory testing. This test is based on the CDC COVID-19 Emergency Use Authorization (EUA) assay, with minor modification as defined by the FDA Performed on the [employer] 7 Flex RT-PCR System. Performing Lab [facility] Lab 10/18/2020 13:11 EST [facility] Swab 10/17/2020 13:3 8 EST 10/17/2020 20:41 EST Provider Outr Resulting Lab MICROBIOLOGY - GENERAL ORDERABLES [facility] [address] [place] [address] documented in this encounter Visit Diagnoses Not on filedocumented in this encounter Care Teams Brace End Mainspring Former Relationship Specialty Start Date End Date Unknown, Provider, PCP - General 10/19/13 documented as of this encounter
--- OUTSIDE RECORDS SUMMARY | 2024-06-13 21:48 | XMS_ITS | Encounter Summary ---
Author Organization [facility] Address [address] [place] [address] Care Team Providers Care Electro Mechanical Solar Technician Name Role Phone Unavailable Primary Care Provider Unavailmazin e Encounter Details Date Type Department Care Team (Latest Contact Info) Description 10/10/2013 15:13 EST - 10/10/2013 23:59 EST Hospital Encounter [facility] [address] [place] [address] Unknown, Provider, Discharge Disposition: Home or Self Care Social History Tobacco Use Types Packs/Day Years Used Date Smoking Tobacco: Never Assessed Sex and Gender Information Value Date Recorded Sex Assigned at Not on file Gender Identity Not on file Sexual Orientation Not on file documented as of this encounter Discharge Disposition Disposition Code Departure Means Destination Home or Self Alf documented in this encounter Plan of Treatment Not on file documented as of this encounter Visit Diagnoses Not on filedocumented in this encounter
--- OUTSIDE RECORDS SUMMARY | 2024-06-13 21:48 | XMS_ITS | Clinical Summary ---
Author Organization [facility] Address [address] [place] [address] Care Team Providers Care Swine Genetics Researcher Name Role Phone Unknown, Provider Primary Care Provider Social History Tobacco Use Types Packs/Day Years Used Date Smoking Tobacco: Never Assessed Sex and Gender Information Value Date Recorded Sex Assigned at Not on file Gender Identity Not on file Sexual Orientation Not on file Plan of Treatment Health Maintenance Due Date Last Done Comments Hepatitis C Screen 1965 Hepatitis B Vaccine (1 of 3 - 19+ 3-dose series) 10/15 COVID-19 Vaccine (2022-24 season) 2023 Care Teams Swine Genetics Researcher Relationship Specialty Start Date End Date Unknown, Provider, PCP - General 10/19/13
--- OUTSIDE RECORDS SUMMARY | 2024-06-13 21:48 | XMS_ITS | Referral Summary ---
Author Organization [facility] Address [address] [place] [address] Care Team Providers Care Tree Trimming Supervisor Name Role Phone Unknown, Provider Primary Care Provider Social History Tobacco Use Types Packs/Day Years Used Date Smoking Tobacco: Never Assessed Sex and Gender Information Value Date Recorded Sex Assigned at Not on file Gender Identity Not on file Sexual Orientation Not on file Plan of Treatment Not on file Care Teams Tree Trimming Supervisor Relationship Specialty Start Date End Date Unknown, Provider, PCP - General 10/19/13
--- OUTSIDE RECORDS SUMMARY | 2024-06-13 21:48 | XMS_ITS | Encounter Summary ---
Author Organization [facility] Address [address] [place] [address] Care Team Providers Care Plastic Panel Installer Name Role Phone Unknown, Provider Primary Care Provider Encounter Details Date Type Department Care Team (Late st Contact Info) Description 07/04/2021 Lab Requisition [facility] Pathology & Laboratory Medicine - [facility] [address] [place] [address] Outr Resulting Lab, Provider Social History Tobacco [...] Priority Date/Time Associated Diagnosis Comments ZZCOVID-19 TEST [facility] PCR Today 07/04/2021 10:30 EST COVID-19 TESTING Routine 07/04/2021 10:3 0 EST documented in this encounter Results * COVID-19 TEST [facility] PCR (07/04/2021 10:30 EST) Swab 07/04/2021 10:3 0 EST 07/04/2021 21:43 EST Provider Outr Resulting Lab MICROBIOLOGY - GENERAL ORDERABLES [facility] [address] [place] [address] * COVID-19 TESTING (07/04/2021 10:30 EST) COVID-19 rt-PCR Result Negative Negative 07/05/2021 15:57 EST [facility] Comment: This test has not [...] clinical observations, patient history, and epidemiological information. Testing was performed using the deion SARS-CoV-2 assay ([employer] on the Deion 6800 System Performing Lab Deion [address] [facility] Lab 07/05/2021 15:57 EST [facility] Swab 07/04/2021 10:3 0 EST 07/04/2021 21:43 EST Provider Outr Resulting Lab MICROBIOLOGY - GENERAL ORDERABLES [facility] [address] [place] [address] documented in this encounter Visit Diagnoses Not on filedocumented in this encounter Care Teams Plastic Panel Installer Relationship Specialty Start Date End Date Unknown, Provider, PCP - General 10/19/13 documented as of this encounter
[2024-06-13 22:37] LABS: Cholesterol 210 mg/dL (<200); HDL Cholesterol 32 mg/dL (40-60); Triglyceride 421 mg/dL (<150)
[2024-06-13 22:50] LABS: LDL CHOLESTEROL 118 mg/dL (<100)
[2024-06-15 10:24] LABS: ALT 40 U/L (16-63); AST 21 U/L (15-37); Alkaline Phosphatase 113 U/L (46-116); Anion Gap 10.9 mmol/L (3-11); BUN 17 mg/dL (7-18); Bilirubin, Total 0.18 mg/dL (0.2-1.0); CO2 23.1 mmol/L (21.0-32.0); CREATININE 1.2 mg/dL (0.70-1.30); Calcium 9.4 mg/dL (8.5-10.1); Chloride 108 mmol/L (98-107); Glucose 102 mg/dL (74-106); Potassium 4.8 mmol/L (3.5-5.1); Sodium 142 mmol/L (136-145); Total Protein 7.7 g/dL (6.4-8.2)
== END 2024-06-13 21:48 | disposition home or self-care (01) ==
LOC: NCHCN 21:47
PROVIDERS: PCP Family Medicine; Visit Provider Family Medicine
DX: E78.5 Hyperlipidemia, unspecified (principal)
CPT/HCPCS: 80053; 80061; 83721

== ENCOUNTER 2024-09-09 16:16 | Emergency (ER) | payer BC, SELFPAY ==
[2024-09-09 16:19] VITALS: BP 114/71; PULSE 69; RESP 14; TEMP 36.4; O2SAT 96
--- NOTE | 2024-09-09 16:45 | DI.RAD_ITS ---
Exam(s) XR CHEST 2V PA LATERAL EXAM: XR CHEST 2V PA LATERAL CLINICAL HISTORY: Worsening symptoms after recent PNA TECHNIQUE: 2D digital imaging was performed of the chest. Two images were obtained. PA and lateral views were obtained. COMPARISON: CR XR PORTABLE CHEST AP from 10/17/2020 FINDINGS: MEDIASTINUM: Normal. HEART: Normal. PULMONARY VASCULATURE: Normal. LUNGS: Clear. PLEURAL SPACE: No pleural effusion or pneumothorax. BONE:Within normal limits for the patient's age. OTHER FINDINGS:Normal. IMPRESSION: No acute pulmonary findings. DATA REPOSITORY: RADIATION DOSE DELIVERED:
--- NOTE | 2024-09-09 16:47 | ED.GENADUL_ITS ---
Discharge Plan Disposition Patient Disposition: Home Condition: Stable Discharge Details Clinical Impression: COVID-19, COPD (chronic obstructive pulmonary disease) Primary Care Provider: Sara Barron ED Provider: Emy Gandhi Home Meds and New Rx's Prescriptions: New Paxlovid 300 mg (150 mg x 2)-100 mg tablets,dose pack See Rx Instructions .ROUTE .COMPLEX Qty: 30 0RF Rx Instructions: take TWO 150 mg tablets of nirmatrelvir with ONE 100 mg tablet of ritonavir twice daily for 5 days No Action bupropion HCl (smoking deter) [Zyban] 150 mg tablet extended release 12 hr 150 mg PO DAILY multivitamin Capsule 1 cap PO DAILY albuterol sulfate 90 mcg/actuation HFA aerosol inhaler 2 puff INHALATION Q6H PRN Patient Comments: INHALE 2 PUFFS EVERY 6 HOURS NEEDED FOR WHEEZING AND SHORTNESS OF BREATH fluticasone propionate 50 mcg/actuation spray,suspension 2 spray INTRANASAL Patient Comments: INSTILL 1 SPRAY IN EACH NOSTRIL 2 TIMES DAILY NEEDED tiotropium bromide [Spiriva with HandiHaler] 18 mcg capsule, w/inhalation device INHALATION Patient Comments: INHALE THE CONTENTS OF ONE CAPSULE VIA HANDIHALER BY MOUTH EVERY DAY acetaminophen [Tylenol] 325 mg Tablet 650 mg PO .QAM PRN echinacea 500 mg Capsule 500 mg PO DAILY Discharge Instructions Instructions: COVID-19 ED Additional Instructions: You were seen in the emergency department today for evaluation of shortness of breath and bodyaches were found to have COVID-19. Given your COPD we did recommend that you start Paxlovid, as that should be started within the first 5 days of symptoms to minimize severe COVID-19 and complications. I do not know any significant medication interactions upon review of your med list. Please follow-up with your primary care provider in the next few days to discuss this visit and any symptoms that change, worsen, or persist. Thank you for allowing us to be part of your care. Stand Alone Forms: Work Release Discharge Data Discharge Date/Time-TO BE ENTERED AT DEPARTURE: 09/09/24 17:51 HPI General Mode of arrival: ambulatory . Date/Time Provider Initiated Documentation: 09/09/24 16:32 . Limitations to Documentation: no limitations . Information obtained by: patient, family and old records reviewed . HPI Narrative: HPI: This is a 58-year-old male patient with a past medical history significant for COPD, history of rheumatic fever with associated mitral regurgitation, who is presenting for evaluation of worsening symptoms after recent episode of pneumonia. The patient reports that he was sick with pneumonia over a week ago, was diagnosed at an urgent care and started on a prednisone burst, and 3 antibiotics, including amoxicillin, azithromycin, and 1 more that he cannot remember. He reports that he is taking all his medications as prescribed, has 1 day left of antibiotics. Initially he felt better, but around 2 to 3 days ago he had a worsening of his symptoms with bodyaches, subjective fevers and chills, ongoing shortness of breath and cough. He has been producing mucus, has been taking his home inhalers as prescribed. States that he had a fever last night, has been using [id number] medications to manage these. Has not had typical p.o. intake given his general malaise. Exam: Gen: Awake and alert, in no apparent distress HEENT: Non-icteric sclera Neck: Supple Lungs: No apparent respiratory distress, normal respiratory effort. Lung sounds clear and equal bilaterally without wheezes, rhonchi, rales CV: Appears well perfused, heart with regular rate and rhythm, strong distal pulses Abdomen: Non-distended MSK: Moves 4 extremities without apparent limitation in ROM. No unilateral calf swelling or tenderness Skin: Visualized skin without rashes, cyanosis. Neuro: Normal Gait, no obvious focal deficits or facial asymmetry. Speaks in full, clear sentences. Psych: Appropriate for situation. MDM: This is a 58-year-old male patient presenting for evaluation of worsening respiratory distress, cough, and general malaise. Differential includes but is not limited to viral URI, pneumonia, bronchitis, COPD exacerbation. No personal history for heart failure or evidence of fluid overload on physical examination to suggest pulmonary edema or pleural effusion. The patient is currently afebrile, not tachycardic or hypotensive and I have a lower concern for septic shock or severe systemic infections. We will obtain a chest x-ray, laboratory studies to include CBC, CMP, magnesium, and a Fluvid. At this time with the lack of hypoxia or wheezing the patient does not require any respiratory treatments, and he is not desiring of any medications for management of pain at this time. ED Course: I independently interpreted the patient's chest x-ray, which shows no abnormalities to account for her symptoms. I am reassured that the patient's antibiotics and treatment for a COPD exacerbation were successful. His viral swab is positive for COVID-19, and given that his symptoms recurred 2 days ago he does meet criteria for Paxlovid, which was sent to his pharmacy. He does not appear to be in a subsequent COPD exacerbation, with no wheezing, hypoxia, or increased work of breathing at this time. At this time, the patient has had a full medical evaluation and is safe for discharge to home. They are hemodynamically stable, ambulatory, and tolerating PO. They are understanding of the follow-up plan and return precautions. They left our facility without incident. Emy Gandhi MD Related Data Home Medications ?Medication ?Instructions ?Recorded ?Confirmed bupropion HCl (smoking deter) 150 150 mg PO DAILY 04/14/19 09/09/24 mg tablet,12 hr sustained-release(smoking deterrent) (Zyban) multivitamin 1 cap PO DAILY 04/14/19 09/09/24 acetaminophen 325 mg tablet 650 mg PO .QAM PRN 10/17/20 09/09/24 (Tylenol) albuterol sulfate 90 mcg/actuation 2 puff inhalation Q6H PRN 10/17/20 09/09/24 aerosol inhaler echinacea 500 mg capsule 500 mg PO DAILY 10/17/20 09/09/24 fluticasone propionate 50 2 spray intranasal 10/17/20 mcg/actuation nasal spray,suspension tiotropium bromide 18 mcg capsule inhalation 10/17/20 with inhalation device (Spiriva with HandiHaler) nirmatrelvir 300 mg (150 mg See Rx Instructions PO .COMPLEX 09/09/24 x2)-ritonavir 100 mg tablet,dose #30 dose pk pack (Paxlovid) Previous Rx's ?Medication ?Instructions ?Recorded nirmatrelvir 300 mg (150 mg See Rx Instructions PO .COMPLEX 09/09/24 x2)-ritonavir 100 mg tablet,dose #30 dose pk pack (Paxlovid) Allergies Allergy/AdvReac Type Severity Reaction Status Date / Time codeine Allergy Anaphylaxsi Verified 09/09/24 16:41 s General Stated Complaint: RespSymp STAS: 3 Course Vital Signs Vital signs: Vital Signs Temperature 36.4 C L 09/09/24 16:19 Pulse 69 09/09/24 16:19 Respiratory Rate 14 09/09/24 16:19 Blood Pressure 114/71 09/09/24 16:19 Pulse Oximetry 96 09/09/24 16:19 Temperature 36.4 C L 09/09/24 16:19 Temperature Source Oral 09/09/24 16:19 Pulse 69 09/09/24 16:19 Respiratory Rate 14 09/09/24 16:19 Respiratory Effort Normal 09/09/24 16:40 Respiratory Depth Normal 09/09/24 16:40 Blood Pressure 114/71 09/09/24 16:19 Blood Pressure Position Sitting 09/09/24 16:19 Pulse Oximetry 96 09/09/24 16:19 Oxygen Delivery Method Room Air 09/09/24 16:19 Oxygen Flow Rate 0 09/09/24 16:19 Pain Level 7 09/09/24 16:19 Medical Decision Making Quality:SDOH Health Related Social Needs: No Data to Display PFSH All Active Problems (Updated 09/09/24 @ 17:42 by Emy Gandhi MD) COPD (chronic obstructive pulmonary disease) (Chronic) COVID-19 (Acute) Left inguinal pain (Acute) Medical History COPD (chronic obstructive pulmonary disease) Migraine headache Anxiety with depression 04/11/19 trial with bupropion for smoking cessation Snoring 04/11/19 patient declined sleep study Cough PFTs ordered 04/11/19 Palpitations Cigarette smoker 04/11/19 trial with bupropion Social History Smoking/Tobacco Use Status: Current every day Tobacco Type: cigarettes Smoking risk assessment performed?: Yes Alcohol Intake: never Substance use type: does not use Do you feel safe at home: Yes Do you feel safe in your relationship?: Yes
[2024-09-09 16:56] LABS: Abs Immature Grans 0.12 10^3/uL (0.0-0.06); Absolute Basophil Count 0.12 10^3/uL (0.0-0.2); Absolute Eosinophil Count 0.06 10^3/uL (0.0-0.7); Absolute Lymphocyte Count 3.03 10^3/uL (1.2-3.4); Absolute Monocyte Count 1.96 10^3/uL (0.1-0.8); Absolute Neutrophil Count 5.38 10^3/uL (1.2-6.7); Basophils % 1.1 %; Eosinophils % 0.6 %; HCT 49.7 % (40.0-50.0); HGB 16.5 g/dL (13.5-17.5); Immature Grans % 1.1 %; Lymphocytes % 28.4 %; MCH 31.1 pg (27.0-33.0); MCHC 33.2 % (32.0-36.0); MCV 94 fL (80-95); MPV 8.9 fL (8.0-11.0); Monocytes % 18.4 %; Neutrophils % 50.4 %; Platelet Count 336 10^3/uL (130-400); RDW 13.1 % (11.8-14.1); RDW-SD 45.6 fL; WBC 10.67 10^3/uL (4.4-10.8)
[2024-09-09 17:08] LABS: Diff Comment Diff Reviewed; RBC Morphology Normal
[2024-09-09 17:18] LABS: ALT 62 U/L (16-63); AST 30 U/L (15-37); Albumin 3.6 g/dL (3.4-5.0); Alkaline Phosphatase 122 U/L (46-116); Anion Gap 5.3 mmol/L (3-11); BUN 13 mg/dL (7-18); Bilirubin, Total 0.23 mg/dL (0.2-1.0); CO2 32.7 mmol/L (21.0-32.0); CREATININE 1.4 mg/dL (0.70-1.30); Calcium 9.2 mg/dL (8.5-10.1); Chloride 99 mmol/L (98-107); Estimated GFR 58.26 (mL/min/1.73m2); Glucose 90 mg/dL (74-106); Magnesium 2.1 mg/dL (1.8-2.4); Potassium 3.4 mmol/L (3.5-5.1); Sodium 137 mmol/L (136-145); Total Protein 7.8 g/dL (6.4-8.2)
[2024-09-09 17:25] VITALS: O2SAT 97
[2024-09-09 17:31] VITALS: BP 126/85; PULSE 57; O2SAT 96
[2024-09-09 17:32] VITALS: O2SAT 97
[2024-09-09 17:33] LABS: Influenza A PCR Negative (Negative); Influenza B PCR Negative (Negative); RSV PCR Negative (Negative)
--- OUTSIDE RECORDS SUMMARY | 2024-09-09 17:33 | XMS_ITS | Clinical Summary ---
Author Organization [facility] Address [address] [place] [id number] Care Team Providers Care Change Agent Name Role Phone Unknown, Provider MD Primary Care Provider Unava ilable Social History Tobacco Use Types Packs/Day Years Used Date Smoking Tobacco: Never Assessed Sex and Gender Information Value Date Recorded Sex Assigned at Not on file Legal Sex Male 15:10 EST Gender Identity Not on file Sexual Orientation Not on file Plan of Treatment Health Maintenance Due Date Last Done Comments Hepatitis C Screen 1965 Hepatitis B Vaccine (1 of 3 - 19+ 3-dose series) 10/15 COVID-19 Vaccine ( season) 2024 Care Teams Change Agent Relationship Specialty Start Date End Date Unknown, Provider, PCP - General 10/19/13
--- OUTSIDE RECORDS SUMMARY | 2024-09-09 17:33 | XMS_ITS | Encounter Summary ---
Author Organization [facility] Address [address] [place] [address] Care Team Providers Care Buggy Operator Name Role Phone Unknown, Provider Primary Care Provider Unava ilable Encounter Details Date Type Department Care Team (Late st Contact Info) Description 07/04/2021 Lab Requisition [facility] Pathology & [place] [address] Outr Resulting Lab, Provider Social History Tobacco [...] Priority Date/Time Associated Diagnosis Comments ZZCOVID-19 TEST [facility] PCR Today 07/04/2021 10:30 EST COVID-19 TESTING Routine 07/04/2021 10:3 0 EST documented in this encounter Results * COVID-19 TEST [facility] PCR (07/04/2021 10:30 EST) Swab 07/04/2021 10:3 0 EST 07/04/2021 21:43 EST us Provider Outr Resulting Lab MICROBIOLOGY - GENER AL ORDERABLES Final Result [facility] [address] [place] [address] * COVID-19 TESTING (07/04/2021 10:30 EST) COVID-19 rt-PCR Result Negative Negative 07/05/2021 15:57 EST [facility] Comment: This test has not [...] was performed using the deion SARS-CoV-2 assay ([employer] on the Deion 6800 System Performing Lab Deion [address] [facility] Lab 07/05/2021 15:57 EST [facility] Swab 07/04/2021 10:3 0 EST 07/04/2021 21:43 EST us Provider Outr Resulting Lab MICROBIOLOGY - GENER AL ORDERABLES Final Result [facility] [address] [place] [address] documented in this encounter Visit Diagnoses Not on filedocumented in this encounter Care Teams Buggy Operator Relationship Specialty Start Date End Date Unknown, Provider, PCP - General 10/19/13 documented as of this encounter
--- OUTSIDE RECORDS SUMMARY | 2024-09-09 17:33 | XMS_ITS | Referral Summary ---
Author Organization [facility] Address [address] [place] [address] Care Team Providers Care Formulation Technician Name Role Phone Unknown, Provider Primary Care Provider Unava ilable Social History Tobacco Use Types Packs/Day Years Used Date Smoking Tobacco: Never Assessed Sex and Gender Information Value Date Recorded Sex Assigned at Not on file Legal Sex Male 15:10 EST Gender Identity Not on file Sexual Orientation Not on file Plan of Treatment Not on file Care Teams Formulation Technician Relationship Specialty Start Date End Date Unknown, Provider, PCP - General 10/19/13
--- OUTSIDE RECORDS SUMMARY | 2024-09-09 17:33 | XMS_ITS | Encounter Summary ---
Author Organization [facility] Address [address] [place] [address] Care Team Providers Care Precision Lens Centerer And Edger Name Role Phone Unavailable Primary Care Provider Unavailabl e Encounter Details Date Type Department Care Team (Latest Contact Info) Description 10/10/2013 15:13 EST - 10/10/2013 23:59 EST Hospital Encounter [facility] [address] [place] [address] Unknown, Provider, MD Discharge Disposition: Home or Self Care Social History Tobacco Use Types Packs/Day Years Used Date Smoking Tobacco: Never Assessed Sex and Gender Information Value Date Recorded Sex Assigned at Not on file Legal Sex Male 15:10 EST Gender Identity Not on file Sexual Orientation Not on file documented as of this encounter Discharge Disposition Disposition Code Departure Means Destination Home or Self Correction documented in this encounter Plan of Treatment Not on file documented as of this encounter Visit Diagnoses Not on filedocumented in this encounter
--- OUTSIDE RECORDS SUMMARY | 2024-09-09 17:33 | XMS_ITS | Encounter Summary ---
Author Organization [facility] Address [address] [place] [address] Care Team Providers Care Still Operator Helper Name Role Phone Unknown, Provider Primary Care Provider Unava ilable Encounter Details Date Type Department Care Team (Late st Contact Info) Description 10/17/2020 Lab Requisition [facility] Pathology & Laboratory [place] [address] Outr Resulting Lab, Provider Social History Tobacco [...] Comments ZZCOVID-19 TEST [facility] PCR Today 10/17/2020 13:38 EST COVID-19 TESTING Routine 10/17/2020 13:3 8 EST documented in this encounter Results * COVID-19 TEST [facility] PCR (10/17/2020 13:38 EST) Swab ENTIRE NASOPHARYNX / Unknown 10/17/2020 13:38 EST 10/17/2020 20:41 EST us Provider Outr Resulting Lab MICROBIOLOGY - GENER AL ORDERABLES Final Result [facility] [address] [place] [address] * COVID-19 TESTING (10/17/2020 13:38 EST) COVID-19 rt-PCR Result Negative Negative 10/18/2020 13:11 EST [facility] Comment: This test has [...] developed and its performance characteristics determined by [facility]. It has not been cleared or approved [...] defined by the FDA Performed on the [employer] Flex RT-PCR System. Performing Lab [facility] Lab 10/18/2020 13:11 EST [facility] Swab 10/17/2020 13:3 8 EST 10/17/2020 20:41 EST us Provider Outr Resulting Lab MICROBIOLOGY - GENER AL ORDERABLES Final Result [facility] [address] [place] [address] documented in this encounter Visit Diagnoses Not on filedocumented in this encounter Care Teams Still Operator Helper Relationship Specialty Start Date End Date Unknown, Provider, PCP - General 10/19/13 documented as of this encounter
[2024-09-09 17:36] LABS: COVID-19 PCR Positive (Negative); Source Nasopharynx
[2024-09-09 17:40] VITALS: O2SAT 95
[2024-09-09 17:50] VITALS: BP 126/85; PULSE 69; RESP 18; O2SAT 97
== END 2024-09-09 17:51 | disposition home or self-care (01) ==
PROVIDERS: Emergency Provider Emergency Medicine; PCP Family Medicine
DX: U07.1 COVID-19 (principal); J44.9 Chronic obstructive pulmonary disease, unspecified
CPT/HCPCS: 80053; 87637; 99283; 71046; 83735; 85025; 99284

== ENCOUNTER 2025-03-16 16:45 | Emergency (ER) | payer OTHER, SELFPAY ==
[2025-03-16 16:47] VITALS: BP 153/113; PULSE 74; RESP 13; TEMP 36.2; O2SAT 95
--- NOTE | 2025-03-16 17:00 | DI.RAD_ITS ---
Exam(s) XR FOOT LT COMPLETE EXAM: XR FOOT LT COMPLETE CLINICAL HISTORY: lateral foot and heel pain x2 days. TECHNIQUE: 2D digital imaging was performed of the left foot. Three images were obtained. AP, oblique and lateral views were obtained. COMPARISON: No exams were available for comparison FINDINGS: BONES: No acute fracture is present. No bony destructive lesion is seen. JOINTS: No dislocation present. There is narrowing of the 1st MTP joint. The joint spaces are otherwise well maintained. SOFT TISSUE: Normal. IMPRESSION: No acute abnormality is identified. DATA REPOSITORY: RADIATION DOSE DELIVERED:
--- NOTE | 2025-03-16 17:06 | W.ED.GENAD ---
Discharge Plan Disposition Patient Disposition: Home Condition: Stable Discharge Details Clinical Impression: Sprain of foot, left Primary Care Provider: Sara Barron ED Provider: Emy Gandhi Home Meds and New Rx's Prescriptions: No Action bupropion HCl (smoking deter) [Zyban] 150 mg tablet extended release 12 hr 150 mg PO DAILY multivitamin Capsule 1 cap PO DAILY albuterol sulfate 90 mcg/actuation HFA aerosol inhaler 2 puff INHALATION Q6H PRN Patient Comments: INHALE 2 PUFFS EVERY 6 HOURS NEEDED FOR WHEEZING AND SHORTNESS OF BREATH fluticasone propionate 50 mcg/actuation spray,suspension 2 spray INTRANASAL PRN Patient Comments: INSTILL 1 SPRAY IN EACH NOSTRIL 2 TIMES DAILY NEEDED tiotropium bromide [Spiriva with HandiHaler] 18 mcg capsule, w/inhalation device 1 cap INHALATION DAILY Patient Comments: INHALE THE CONTENTS OF ONE CAPSULE VIA HANDIHALER BY MOUTH EVERY DAY acetaminophen [Tylenol] 325 mg Tablet 650 mg PO .QAM PRN echinacea 500 mg Capsule 500 mg PO DAILY acyclovir 400 mg tablet 400 mg PO TID Patient Comments: TAKE ONE TABLET BY MOUTH THREE TIMES A DAY fenofibrate 160 mg tablet 160 mg PO DAILY Patient Comments: TAKE ONE TABLET BY MOUTH EVERY DAY DIRECTED FOR HIGH TRIGLYCERIDES Qvar RediHaler 80 mcg/actuation HFA aerosol breath activated 2 inh INHALATION BID Patient Comments: INHALE TWO PUFFS BY MOUTH TWICE A DAY Discharge Instructions Instructions: Foot Sprain (DC) Additional Instructions: You were seen in the emergency department today for evaluation of a foot injury. In our department had a full physical examination performed, and had an x-ray that did not show any sign of fracture or dislocation. You likely experienced a sprain of your foot, and were placed in a splint which you should wear when you are up and about. Please take Tylenol, 2 extra strength tablets (1000 mg) every 6 hours for your pain, and you can utilize the diclofenac gel as often as 3 times per day over the area of maximal pain. Please utilize these medications consistently for the next 3 to 5 days. I have provided you with a short course of oxycodone to be used for breakthrough pain at bedtime. Please avoid driving, operating heavy machinery at work, or other dangerous activities as this medication can cause sedation. Please follow-up with your primary care provider in the next few days to discuss this visit and any symptoms that change, worsen, or persist. Thank you for allowing us to be part of your care. Stand Alone Forms: Work Release Discharge Data Discharge Date/Time-TO BE ENTERED AT DEPARTURE: 03/16/25 18:49 HPI General Mode of arrival: wheelchair. Date/Time Provider Initiated Documentation: 03/16/25 16:52. Limitations to Documentation: no limitations. Information obtained by: patient, family and old records reviewed. HPI Narrative: This is a 59-year-old male patient with history of reactive airway disease presenting for evaluation of a foot injury. The patient reports that he was working at [employer], and he has a repetitive walk around the table that he has to do multiple times per day. He states that while performing this walk he felt a pop in the lateral aspect of his foot just distal to the ankle/heel. He reports that he did not have pain at first but has been attempting to avoid bearing weight on it and has developed some pain in the lateral midfoot, which radiates up into the leg. He reports that he sometimes feels a tingling sensation in the lateral aspect of his leg. He reports that he has been using Tylenol without significant improvement. Has not noted any bruising or swelling. Did not fall or sustain other injury. Denies numbness, tingling, or weakness distal to the injury. Has full range of motion of the foot. Related Data Home Medications ?Medication ?Instructions ?Recorded ?Confirmed bupropion HCl (smoking deter) 150 150 mg PO DAILY 04/14/19 03/16/25 mg tablet,12 hr sustained-release(smoking deterrent) (Zyban) multivitamin 1 cap PO DAILY 04/14/19 03/16/25 acetaminophen 325 mg tablet 650 mg PO .QAM PRN 10/17/20 03/16/25 (Tylenol) albuterol sulfate 90 mcg/actuation 2 puff inhalation Q6H PRN 10/17/20 03/16/25 aerosol inhaler echinacea 500 mg capsule 500 mg PO DAILY 10/17/20 03/16/25 fluticasone propionate 50 2 spray intranasal PRN 10/17/20 03/16/25 mcg/actuation nasal spray,suspension tiotropium bromide 18 mcg capsule 1 cap inhalation DAILY 10/17/20 03/16/25 with inhalation device (Spiriva with HandiHaler) acyclovir 400 mg tablet 400 mg PO TID 03/16/25 03/16/25 beclomethasone dipropionate 80 2 inh inhalation BID 03/16/25 03/16/25 mcg/actuation HFA breath activated aerosol (Qvar RediHaler) fenofibrate 160 mg tablet 160 mg PO DAILY 03/16/25 03/16/25 Allergies Allergy/AdvReac Type Severity Reaction Status Date / Time codeine Allergy Anaphylaxsi Verified 03/16/25 16:52 s General Stated Complaint: Orthopedic STAS: 4 Exam Narrative Exam Narrative: Gen: Awake and alert, in no apparent distress HEENT: Non-icteric sclera Neck: Supple Lungs: No apparent respiratory distress, normal respiratory effort. CV: Appears well perfused Abdomen: Non-distended MSK: Moves 4 extremities without apparent limitation in ROM, including the foot which is able to dorsiflex and plantarflex fully, both passively and against resistance. He everts and inverts though this motion does cause some reproduction of his lateral pain. He has no deformity of his left lateral foot, his calcaneal tendon has no palpable defects, calf is nontender, proximal fibula without tenderness or deformity. Skin: Visualized skin without rashes, cyanosis. Neuro: Antalgic Gait, no obvious focal deficits or facial asymmetry. Speaks in full, clear sentences. CSM's intact and symmetrical Psych: Appropriate for situation. Course Vital Signs Vital signs: Vital Signs Temperature 36.2 C L 03/16/25 16:47 Pulse 74 03/16/25 16:47 Respiratory Rate 13 03/16/25 16:47 Blood Pressure 153/113 H 03/16/25 16:47 Pulse Oximetry 95 03/16/25 16:47 Temperature 36.2 C L 03/16/25 16:47 Temperature Source Oral 03/16/25 16:47 Pulse 74 03/16/25 16:47 Respiratory Rate 13 03/16/25 16:47 Blood Pressure 153/113 H 03/16/25 16:47 Blood Pressure Position Sitting 03/16/25 16:47 Pulse Oximetry 95 03/16/25 16:47 Oxygen Delivery Method Room Air 03/16/25 16:47 Oxygen Flow Rate 0 03/16/25 16:47 Pain Level 7 03/16/25 16:47 Medical Decision Making This is a 59-year-old male patient presenting for evaluation of left foot injury. My differential includes but is not limited to fracture, dislocation, sprain, strain, less concern for neurovascular injury. The radiation of pain of his leg is likely related to muscular strain in the setting of alteration in gait that the patient endorses. I note no neurovascular deficits. We will obtain an x-ray of the affected foot, and I provided the patient with diclofenac gel as he reports that he cannot take oral NSAIDs. - I reviewed the x-ray imaging which shows no fracture, dislocation, or other abnormalities in the area of pain. I am most concerned for a foot sprain. As the location of the pain is very close to the ankle and it is reproducible with inversion and eversion I feel that an ankle stabilizer/lace up splint is an appropriate brace for this injury. This was placed, patient was able to ambulate and had intact CSM's on my reexamination. I did provide him with a short course of oxycodone for utilization at night for breakthrough pain and counseled him on conservative pain management with Tylenol and diclofenac gel. A work note was provided and the patient has the ability to follow-up in the outpatient environment with his primary care provider for reassessment. At this time, the patient has had a full medical evaluation and is safe for discharge to home. They are hemodynamically stable, ambulatory, and tolerating PO. They are understanding of the follow-up plan and return precautions. They left our facility without incident. Emy Gandhi MD [facility] All Active Problems (Updated 03/16/25 @ 18:31 by Emy Gandhi MD) Sprain of foot, left (Acute) COVID-19 (Acute) Left inguinal pain (Acute) Medical History COPD (chronic obstructive pulmonary disease) Migraine headache Anxiety with depression 04/11/19 trial with bupropion for smoking cessation Snoring 04/11/19 patient declined sleep study Cough PFTs ordered 04/11/19 Palpitations Cigarette smoker 04/11/19 trial with bupropion Social History Smoking/Tobacco Use Status: Current every day Tobacco Type: cigarettes Smoking risk assessment performed?: Yes Alcohol Intake: never Drug use: Never Substance use type: does not use Do you feel safe at home: Yes Do you feel safe in your relationship?: Yes
[2025-03-16] MEDS: Diclofenac 1% Gel 100 GM TUBE TP (17:32)
[2025-03-16 18:47] VITALS: BP 139/87; PULSE 84; RESP 15; O2SAT 95
== END 2025-03-16 18:49 | disposition home or self-care (01) ==
PROVIDERS: Emergency Provider Emergency Medicine; PCP Family Medicine
DX: S93.602A Unspecified sprain of left foot, initial encounter (principal); F17.210 Nicotine dependence, cigarettes, uncomplicated; X50.9XXA Other and unspecified overexertion or strenuous movements or postures, initial encounter; Y93.01 Activity, walking, marching and hiking; Y92.89 Other specified places as the place of occurrence of the external cause; Y99.0 Civilian activity done for income or pay
CPT/HCPCS: 99283; 73630